=== PATIENT | male | born 1940 | race Hispanic/Latino ===

== ENCOUNTER 2017-06-24 07:23 | Outpatient (CLI) | payer MEDICARE, OTHER ==
--- NOTE | 2017-07-01 10:16 | Vascular Lab Report ---
MESENTERIC ARTERIAL DUPLEX Reason for exam: Mesenteric artery insufficiency Comments: The aorta is patent. Flow velocities are within normal limits. Minimal atherosclerotic change is identified. No aneurysmal dilatation is noted. The celiac artery is patent. Flow velocities are mildly elevated. No evidence of obstruction is identified. The superior mesenteric artery is patent. Flow velocities are mildly elevated. No evidence of obstruction is identified. Impression: No evidence of aortic occlusion or aortic aneurysm formation is identified. There are mildly elevated velocities in the celiac artery and superior mesenteric artery but no significant plaque is identified. The study does not identify any source of abdominal pain.
--- NOTE | 2017-07-01 11:20 | Vascular Lab Report ---
LOWER EXTREMITY ARTERIAL DUPLEX: REASON FOR EXAM: Claudication. COMMENTS ON THE RIGHT: Triphasic waveforms are seen proximally. Monophasic waveforms are seen distally. 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 Scattered plaque is seen throughout. Findings are consistent with abnormal perfusion. Findings are consistent with claudication. COMMENTS ON THE LEFT: Biphasic waveforms are seen proximally. Monophasic waveforms are seen distally. Evidence of iliac artery and superficial femoral artery occlusive disease is identified. Scattered plaque is seen throughout. Findings are consistent with abnormal perfusion. Findings are consistent with claudication. IMPRESSION: RIGHT: Findings are consistent with claudication. 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 LEFT:Findings are consistent with claudication. Iliac artery and superficial femoral artery occlusive disease are identified.
== END 2017-06-24 07:24 | disposition home or self-care (01) ==
LOC: VAS 07:23
PROVIDERS: ATTEND Internal Medicine
DX: R09.89 Other specified symptoms and signs involving the circulatory and respiratory systems (principal); I73.9 Peripheral vascular disease, unspecified; I77.1 Stricture of artery; R10.9 Unspecified abdominal pain
CPT/HCPCS: 93880; 93925; 93979